=== PATIENT | male | born 1980 | race Caucasian/White ===

== ENCOUNTER 2025-02-17 07:29 | Day surgery (SDC) | payer OTHER ==
[~2025-02-17] VITALS: Ht 180.3 cm; Wt 114.8 kg
[~2025-02-17 07:29] MED LIST: LORA-243 PO; OMEP1CAP73 PO; SERT25TA85 PO
[2025-02-17] MEDS ORDERED: MIDAZOLAM INJ 2 MG/2 ML VIAL As Ordered ONE (08:30)
[2025-02-17] MEDS ORDERED: LIDOCAINE 2% 100 MG/5 ML SDV (FOR ANES.) As Ordered ONE (08:30)
[2025-02-17 09:03] VITALS: TEMP 99.2
[2025-02-17 09:18] VITALS: BP 120/79; O2SAT 98
== END 2025-02-17 09:38 | disposition home or self-care (01) ==
LOC: M OPP 07:29
PROVIDERS: ATTEND Surgery
DX: Z12.11 Encounter for screening for malignant neoplasm of colon (principal); K64.0 First degree hemorrhoids; Z88.0 Allergy status to penicillin; Z91.040 Latex allergy status; Z79.899 Other long term (current) drug therapy
CPT/HCPCS: 45378; J2250